=== PATIENT | male | born 1995 | race African-American/Black ===

== ENCOUNTER 2016-06-15 23:26 | Emergency (ER) | payer OTHER ==
[~2016-06-15] VITALS: Ht 185.4 cm; Wt 105.0 kg
[~2016-06-15 23:26] MED LIST: ALBU6.7H INH; RANI150C PO
[2016-06-15 23:27] VITALS: BP 119/71; PULSE 84; RESP 16; TEMP 98; O2SAT 99
[2016-06-16] MEDS ORDERED: GLYB2.5T3 PO (00:10)
[2016-06-16 04:06] LABS: AUTOMATED NEUTROPHIL # 2.2 TH/MM3 (1.8-7.7); BASOPHIL % 0.4 % (0.0-2.0); EOSINOPHIL # 0.2 TH/MM3 (0-0.4); EOSINOPHIL % 3.4 % (0.0-4.0); HEMATOCRIT 42.7 % (39.0-51.0); HEMO FLAGS DIFF FINAL; LYMPH % 44.8 % (9.0-44.0); LYMPHOCYTE # 2.5 TH/MM3 (1.0-4.8); MEAN CELL VOLUME 85.3 FL (80.0-100.0); MEAN CORPUSCULAR HEMOGLOBIN 28.8 PG (27.0-34.0); MEAN CORPUSCULAR HGB CONC 33.8 % (32.0-36.0); MONO % 11.6 % (0.0-8.0); NEUT % 39.8 % (16.0-70.0); PLATELET COUNT 218 TH/MM3 (150-450); RED CELL DISTRIBUTION WIDTH 13.5 % (11.6-17.2); WHITE BLOOD COUNT 5.6 TH/MM3 (4.0-11.0)
[2016-06-16 04:30] LABS: BLOOD, URINE NEG (NEG); GLUCOSE,URINE NEG (NEG); KETONE, URINE NEG (NEG); NITRITE,URINE NEG (NEG); URINE COLOR YELLOW (YELLW/STRAW)
[2016-06-16 04:34] LABS: COMMENT (UR) CULT NOT INDICATED; CULTURE IF INDICATED CULT NOT INDICATED
[2016-06-16 04:36] LABS: ALT (GPT) 22 U/L (9-52); ANION GAP 7 MEQ/L (5-15); AST (GOT) 21 U/L (15-39); BICARBONATE 26.5 MEQ/L (21.0-32.0); BLOOD UREA NITROGEN 11 MG/DL (7-18); CHLORIDE 106 MEQ/L (98-107); GLOMERULAR FILTRATION RATE 107 ML/MIN (>89); POTASSIUM 3.9 MEQ/L (3.5-5.1); SODIUM (NA) 139 MEQ/L (136-145)
[2016-06-16 04:38] LABS: ALKALINE PHOSPHATASE 48 U/L (45-117); TOTAL BILIRUBIN ADULT 1.3 MG/DL (0.2-1.0)
== END 2016-06-16 06:30 | disposition left against medical advice (07) ==
LOC: NED 23:26
DX: R11.10 Vomiting, unspecified (principal)
CPT/HCPCS: 80053; 81001; 83690; 85025; 99281

== ENCOUNTER 2016-10-13 00:22 | Emergency (ER) | payer SELFPAY ==
[~2016-10-13] VITALS: Ht 185.4 cm; Wt 105.0 kg
[~2016-10-13 00:22] MED LIST changes: -ALBU6.7H INH; +GLYB2.5T3 PO; -RANI150C PO
[2016-10-13 00:24] VITALS: BP 143/74; PULSE 82; RESP 16; TEMP 98.2; O2SAT 97
== END 2016-10-13 00:55 | disposition left against medical advice (07) ==
LOC: NED 00:22
DX: M54.9 Dorsalgia, unspecified (principal)
CPT/HCPCS: 99281

== ENCOUNTER 2016-10-30 23:47 | Emergency (ER) | payer MEDICAID, OTHER ==
[~2016-10-30] VITALS: Ht 185.4 cm; Wt 115.0 kg
[2016-10-30 23:52] VITALS: BP 165/82; PULSE 100; RESP 20; TEMP 98.4; O2SAT 94
[2016-10-31] MEDS ORDERED: methylPREDNISolone SOD SUCC 125 MG/2 ML VIAL IVP ONE (00:15)
[2016-10-31] MEDS ORDERED: SODIUM CHLOR 0.9% 1000 ML INJ 1,000 ML IV ONE (00:15)
[2016-10-31] MEDS ORDERED: SODIUM CHLORIDE 0.9% FLUSH 10 ML FLUSH IVF PRN (00:15)
[2016-10-31] MEDS: RESP: ALBUTEROL 2.5 MG/IPRATROPIUM 0.5 MG NEB (SCH) INH (00:29)
--- NOTE | 2016-10-31 00:32 | RADRPT ---
EXAM DATE/TIME: 10/31/2016 00:13 [facility] COMPARISON: No previous studies available for comparison. INDICATIONS : Pt has had cough x 6 hours. MEDICAL HISTORY : None. SURGICAL HISTORY : None. ENCOUNTER: Initial ACUITY: 1 day PAIN SCORE: 6/10 LOCATION: Bilateral chest FINDINGS: A single view of the chest demonstrates the lungs to be symmetrically aerated without evidence of mas s, infiltrate or effusion. The cardiomediastinal contours are unremarkable. Osseous structures are intact. CONCLUSION: Normal examination. Juan David MD on October 31, 2016 at 0:30 Board Certified Radiologist. This report was verified electronically.
[2016-10-31 00:43] VITALS: RESP 20; O2SAT 95
[2016-10-31 02:02] VITALS: BP 116/57; PULSE 102; RESP 18; O2SAT 96
[2016-10-31] MEDS ORDERED: PRED50 PO (03:11)
[2016-10-31] MEDS ORDERED: ALBU0.08 NEB (03:11)
[2016-10-31] MEDS ORDERED: NEBULIZER/ADULT1 KIT (03:11)
[2016-10-31] MEDS ORDERED: ALBUAER3 INH (03:11)
--- NOTE | 2016-10-31 03:12 | PD ---
HPI Chief Complaint: Respiratory Distress Time Seen by Provider: 00:02 Travel History International Travel<30 days: No Contact w/Intl Traveler<30days: No Traveled to known affect area: No History of Present Illness HPI 20-year-old male with history of asthma presents to the emergency department via EMS for 2-3 days of progressive worsening shortness of breath. Patient is out of his rescue inhaler. Patient has not recently been on steroids. Patient denies fever or chills. Patient's had nonproductive cough. Patient denies chest pain. PFSH Past Medical History Narrative Medical Asthma diabetes tonsillectomy; alcohol use: Nursing notes reviewed Asthma: Yes Diabetes: Yes Diminished Hearing: No Respiratory: Yes (ASTHMA) Tetanus Vaccination: < 5 Years Influenza Vaccination: Yes Past Surgical History Tonsillectomy: Yes (T AND A) Other Surgery: Yes (adenoids removed ) Social History Alcohol Use: Yes (rarely ) Tobacco Use: No Substance Use: No Allergies-Medications (Allergen,Severity, Reaction): Coded Allergies: Shellfish (Verified Allergy, Severe, Hives, 10/30/16) Reported Meds & Prescriptions Reported Meds & Active Scripts Active Nebulizer/Adult Mask (N/A) 1 Kit Kit 1 Kit .ROUTE DIRECTED Proair Hfa 8.5 GM Inh (Albuterol Sulfate) 90 Mcg/Act Aer 2 Puff INH Q4-6H PRN 108 mcg/actuation Albuterol Neb (Albuterol Sulfate) 2.5 Mg/3 Ml Neb 2.5 Mg NEB Q4HR NEB PRN Prednisone 50 Mg Tab 50 Mg PO DAILY Review of Systems Except as stated in HPI: all other systems reviewed are Neg General / Constitutional: No: Fever, Chills HENT: No: Congestion Cardiovascular: No: Chest Pain or Discomfort Respiratory: Positive: Cough, Shortness of Breath, Wheezing Gastrointestinal: No: Nausea, Vomiting, Abdominal Pain Genitourinary: No: Urgency, Frequency, Decreased Urinary Output Musculoskeletal: No: Myalgias, Arthralgias Skin: No Rash Neurologic: No: Weakness Psychiatric: No: Anxiety Endocrine: No: Polyuria, Polydipsia Hematologic/Lymphatic: No: Lymph Node Enlargement Physical Exam Narrative GENERAL: Well-developed well-nourished male in mild respiratory distress; no stridor or hoarseness SKIN: Warm and dry. HEAD: Normocephalic. EYES: No scleral icterus. No injection or drainage. NECK: Supple, trachea midline. No JVD or lymphadenopathy. CARDIOVASCULAR: Increased Regular rate and rhythm without murmurs, gallops, or rubs. RESPIRATORY: Breath sounds equal bilaterally diffuse wheezing bilaterally. No accessory muscle use. GASTROINTESTINAL: Abdomen soft, non-tender, nondistended. MUSCULOSKELETAL: No cyanosis, or edema. BACK: Nontender without obvious deformity. No CVA tenderness. Data Data Last Documented VS Vital Signs Date Time Temp Pulse Resp B/P Pulse Ox O2 Delivery O2 Flow Rate FiO2 10/31/16 03:31 98.6 92 16 142/68 96 10/31/16 02:02 Room Air Orders Iv Access Insert/Monitor (10/31/16 00:02) Ecg Monitoring (10/31/16 00:02) Oximetry (10/31/16 00:02) Chest, Single Ap (10/31/16 00:02) Sodium Chloride 0.9% Flush (Ns Flush) (10/31/16 00:15) Methylprednisolone So Succ Inj (Solumedr (10/31/16 00:15) Albuterol-Ipratropium Neb (Duoneb Neb) (10/31/16 00:15) Sodium Chlor 0.9% 1000 Ml Inj (Ns 1000 M (10/31/16 00:15) MDM Medical Decision Making Medical Screen Exam Complete: Yes Emergency Medical Condition: Yes Medical Record Reviewed: Yes Differential Diagnosis Exacerbation asthma, bronchitis, pneumonia Narrative Course Bilateral audible expiratory wheeze with some work of breathing; placed on monitor patient administered steroid and DuoNeb updrafts. Patient resting and reassessed decreased wheezing lung sounds are clear Patient remains clinically improved and stable for outpatient management. Patient reports that he is out of his rescue inhaler and needs medication refill. Diagnosis Primary Impression: Asthma Qualified Code: J45.21 - Mild intermittent asthma with acute exacerbation Referrals: [facility] 2 days Patient Instructions: General Instructions Additional Instructions: Take medication as prescribed Follow-up with primary care provider/[facility] Return to the emergency for any concerns or change in condition Take acetaminophen/Tylenol as needed for fever 100.4F or greater Increase fluid hydration Med/Other Pt SpecificInfo: Prescription(s) given Scripts Nebulizer/Adult Mask 1 Kit Kit #1 KIT .ROUTE DIRECTED Ref 0 Prov:Florinda Castro MD 10/31/16 Albuterol 8.5 GM Inh (Proair Hfa 8.5 GM Inh)90 Mcg/Act Aer2 Puff INH Q4-6H PRN ( SHORTNESS OF BREATH) #1 INHALER Ref 0 108 mcg/actuation Prov:Florinda Castro MD 10/31/16 Albuterol Neb 2.5 Mg/3 Ml Neb2.5 Mg NEB Q4HR NEB PRN (SHORTNESS OF BREATH) #60 NEBULE Ref 0 Prov:Florinda Castro MD 10/31/16 Prednisone 50 Mg Tab50 Mg PO DAILY #4 TAB Ref 0 Prov:Florinda Castro MD 10/31/16 Disposition: 01 DISCHARGE HOME Condition: Stable Florinda Castro MD Oct 31, 2016 03:12
[2016-10-31 03:31] VITALS: BP 142/68; TEMP 98.6
== END 2016-10-31 03:40 | disposition home or self-care (01) ==
LOC: NEPC 23:47
DX: J45.21 Mild intermittent asthma with (acute) exacerbation (principal); E11.9 Type 2 diabetes mellitus without complications; Z87.09 Personal history of other diseases of the respiratory system
CPT/HCPCS: 71010; 94640; 94664; 96361; 96374; 99284; J2930; J7030

== ENCOUNTER 2016-11-10 22:16 | Emergency (ER) | payer MEDICAID ==
[~2016-11-10] VITALS: Ht 185.4 cm; Wt 114.0 kg
[~2016-11-10 22:16] MED LIST changes: +ALBU0.08 NEB; +ALBUAER3 INH; -GLYB2.5T3 PO; +NEBULIZER/ADULT1 KIT; +PRED50 PO
[2016-11-10 22:19] VITALS: BP 146/72; PULSE 90; RESP 20; TEMP 99.1; O2SAT 93
[2016-11-10 22:33] VITALS: PULSE 102; RESP 24; O2SAT 88
--- NOTE | 2016-11-10 22:35 | PD ---
Physical Exam Date Seen by Provider: Nov 10, 2016 Time Seen by Provider: 22:33 Narrative 20 yo male here for evaluation of SOB. Has had this for about two weeks. Per patient he was seen here and taking meds with no improvement. History of asthma. Finished steroids. No fevers. No sick contacts. Vitals are stable. Awaiting bed placement. Data Data Last Documented VS Vital Signs Date Time Temp Pulse Resp B/P Pulse Ox O2 Delivery O2 Flow Rate FiO2 11/10/16 22:19 99.1 90 20 146/72 93 Room Air [facility] Medical Record Reviewed: Yes Supervised Visit with POONAM: No Mandeep Amato Nov 10, 2016 22:35
[2016-11-10] MEDS ORDERED: SODIUM CHLORIDE 0.9% FLUSH 10 ML FLUSH IVF PRN (22:45)
[2016-11-10] MEDS ORDERED: methylPREDNISolone SOD SUCC 125 MG/2 ML VIAL IVP ONE (22:45)
[2016-11-10] MEDS ORDERED: RESP: BUDESONIDE 0.5 MG/2 ML NEB NEB ONE (22:45)
[2016-11-10] MEDS: RESP: ALBUTEROL 2.5 MG/IPRATROPIUM 0.5 MG NEB (SCH) INH ×3 (22:55→23:00)
[2016-11-10 22:57] VITALS: RESP 18; O2SAT 96
--- NOTE | 2016-11-10 23:00 | RADRPT ---
EXAM DATE/TIME: 11/10/2016 22:40 [facility] COMPARISON: CHEST SINGLE AP, October 31, 2016, 0:13. INDICATIONS : Short of breath. MEDICAL HISTORY : None. SURGICAL HISTORY : None. ENCOUNTER: Initial ACUITY: 1 day PAIN SCORE: 0/10 LOCATION: Bilateral chest FINDINGS: Minimal parenchymal changes are present in the left base. The right lung is clear. The heart and pul monary vascularity are normal. The portion of the bony skeleton visualized is unremarkable. CONCLUSION: Normal parenchymal changes left base, nonspecific Jovanny De La Cruz MD FACR on November 10, 2016 at 22:58 Board Certified Radiologist. This report was verified electronically.
[2016-11-10 23:13] LABS: BLOOD GAS BASE EXCESS 2.7 mmol/L (-2-2); BLOOD GAS CARBOXYHEMOGLOBIN 0.8 % (0-4); BLOOD GAS HCO3 27 mmol/L (22-26); BLOOD GAS METHEMOGLOBIN 0.6 % (0-2); BLOOD GAS O2 HGB SATURATION 93 % (90-100); BLOOD GAS OXYGEN CONTENT 19.6 Vol % (12.0-20.0); BLOOD GAS PCO2 42 mmHg (38-42); BLOOD GAS PO2 71 mmHG (61-120); BLOOD GAS TOTAL HGB 14.9 G/DL (12.0-16.0); CRITICAL VALUE NO; LITER FLOW 2 L/M; OXYGEN DEVICE NASAL CANNULA; TEMP CORR TO 98.6
[2016-11-10 23:14] LABS: DRAW SITE RT RADIAL; NUMBER OF ARTERIAL PUNCTURES 1; STAT YES; ULNAR PULSE PRESENT
[2016-11-10 23:27] LABS: AUTOMATED NEUTROPHIL # 5.4 TH/MM3 (1.8-7.7); BASOPHIL # 0.1 TH/MM3 (0-0.2); BASOPHIL % 0.5 % (0.0-2.0); EOSINOPHIL # 0.4 TH/MM3 (0-0.4); EOSINOPHIL % 3.9 % (0.0-4.0); HEMO FLAGS DIFF FINAL; LYMPH % 36.2 % (9.0-44.0); LYMPHOCYTE # 3.7 TH/MM3 (1.0-4.8); MEAN CELL VOLUME 84.2 FL (80.0-100.0); MEAN CORPUSCULAR HEMOGLOBIN 28.5 PG (27.0-34.0); MEAN CORPUSCULAR HGB CONC 33.8 % (32.0-36.0); MONO % 6.5 % (0.0-8.0); NEUT % 52.9 % (16.0-70.0); PLATELET COUNT 261 TH/MM3 (150-450); RED BLOOD COUNT 5.23 MIL/MM3 (4.50-5.90); RED CELL DISTRIBUTION WIDTH 13.4 % (11.6-17.2); WHITE BLOOD COUNT 10.2 TH/MM3 (4.0-11.0)
[2016-11-10 23:59] LABS: ANION GAP 6 MEQ/L (5-15); AST (GOT) 26 U/L (15-39); BICARBONATE 26.6 MEQ/L (21.0-32.0); BLOOD UREA NITROGEN 17 MG/DL (7-18); CHLORIDE 106 MEQ/L (98-107); GLOMERULAR FILTRATION RATE 95 ML/MIN (>89); POTASSIUM 3.6 MEQ/L (3.5-5.1); SODIUM (NA) 139 MEQ/L (136-145)
[2016-11-11] LABS: ALT (GPT) 27 U/L (9-52)
[2016-11-11 00:04] LABS: ALKALINE PHOSPHATASE 49 U/L (45-117); CREATINE KINASE 419 U/L (39-308); TOTAL BILIRUBIN ADULT 0.7 MG/DL (0.2-1.0)
[2016-11-11 00:16] LABS: CKMB 3.9 NG/ML (0.5-3.6)
[2016-11-11] MEDS ORDERED: PRED20 PO (00:49)
[2016-11-11] MEDS ORDERED: ALBUAER3 INH (00:49)
[2016-11-11] MEDS ORDERED: AZIT250T3 PO (00:49)
[2016-11-11] MEDS ORDERED: BECL80AE3 INH (00:49)
--- NOTE | 2016-11-11 00:50 | PD ---
HPI Chief Complaint: Respiratory Symptoms Time Seen by Provider: 00:25 Travel History International Travel<30 days: No Contact w/Intl Traveler<30days: No Traveled to known affect area: No History of Present Illness HPI This is a 20-year-old male with a history of asthma who presents to the emergency department with 2 weeks of increasing shortness of breath associated with a productive cough with some blood and yellow sputum, intermittent, moderate severity. Patient reports he ran out of his inhaler but he didn't think it was working anyway. He says he has asthma attacks every 2 weeks or so. He denies any fevers or chills. He denies any recent long trips or leg swelling. PFSH Past Medical History Asthma: Yes Diabetes: Yes Patient Takes Glucophage: No Diminished Hearing: No Respiratory: Yes (ASTHMA) Tetanus Vaccination: > 5 Years Influenza Vaccination: No Past Surgical History Tonsillectomy: Yes (T AND A) Other Surgery: Yes (adenoids removed ) Social History Alcohol Use: Yes (rarely ) Tobacco Use: No Substance Use: No Allergies-Medications (Allergen,Severity, Reaction): Coded Allergies: Shellfish (Verified Allergy, Severe, Hives, 10/30/16) Reported Meds & Prescriptions Reported Meds & Active Scripts Active Nebulizer/Adult Mask (N/A) 1 Kit Kit 1 Kit .ROUTE DIRECTED Proair Hfa 8.5 GM Inh (Albuterol Sulfate) 90 Mcg/Act Aer 2 Puff INH Q4-6H PRN 108 mcg/actuation Albuterol Neb (Albuterol Sulfate) 2.5 Mg/3 Ml Neb 2.5 Mg NEB Q4HR NEB PRN Prednisone 50 Mg Tab 50 Mg PO DAILY Review of Systems Except as stated in HPI: all other systems reviewed are Neg Physical Exam Narrative GENERAL:Well appearing, no acute distress SKIN: Focused skin assessment warm and dry. HEAD: Atraumatic. Normocephalic. EYES: Pupils equal and round. No injection or drainage. ENT: Moist mucous membranes NECK: Trachea midline. CARDIOVASCULAR: Regular rate and rhythm. No murmur appreciated. RESPIRATORY: Mild diffuse wheezing. No increased work of breathing. GASTROINTESTINAL: Abdomen soft, non-tender, nondistended. MUSCULOSKELETAL: No obvious deformities. NEUROLOGICAL: Awake and alert. No obvious cranial nerve deficits. Moving all extremities. PSYCHIATRIC: Appropriate mood and affect; insight and judgment normal. Data Data Last Documented VS Vital Signs Date Time Temp Pulse Resp B/P Pulse Ox O2 Delivery O2 Flow Rate FiO2 11/10/16 22:57 96 Nasal Cannula 2 11/10/16 22:57 18 11/10/16 22:33 102 11/10/16 22:19 99.1 146/72 Orders Complete Blood Count With Diff (11/10/16 22:45) Comprehensive Metabolic Panel (11/10/16 22:45) Arterial Blood Gas (Abg) (11/10/16 22:45) Iv Access Insert/Monitor (11/10/16 22:45) Electrocardiogram (11/10/16 22:45) Ecg Monitoring (11/10/16 22:45) Oximetry (11/10/16 22:45) Oxygen Administration (11/10/16 22:45) Chest, Single Ap (11/10/16 22:45) Sodium Chloride 0.9% Flush (Ns Flush) (11/10/16 22:45) Methylprednisolone So Succ Inj (Solumedr (11/10/16 22:45) Albuterol-Ipratropium Neb (Duoneb Neb) (11/10/16 22:45) Budesonide Neb (Pulmicort Respule Neb) (11/10/16 22:45) Westergren Sedimentation Rate (11/10/16 23:00) C-Reactive Protein (Crp) (11/10/16 22:55) Troponin I (11/10/16 22:55) Ckmb (Isoenzyme) Profile (11/10/16 22:55) CKMB (11/10/16 22:55) CKMB% (11/10/16 22:55) Labs Laboratory Tests Test 11/10/16 11/10/16 22:46 22:55 Blood Gas Puncture Site RT RADIAL Blood Gas Patient Temperature 98.6 Blood Gas HCO3 27 mmol/L Blood Gas Base Excess 2.7 mmol/L Blood Gas Oxygen Saturation 93 % Arterial Blood pH 7.42 Arterial Blood Partial 42 mmHg Pressure CO2 Arterial Blood Partial 71 mmHG Pressure O2 Arterial Blood Oxygen Content 19.6 Vol % Arterial Blood 0.8 % Carboxyhemoglobin Arterial Blood Methemoglobin 0.6 % Blood Gas Hemoglobin 14.9 G/DL Oxygen Delivery Device NASAL CANNULA Blood Gas Liter Flow 2 L/M Erythrocyte Sedimentation Rate 1 mm/hr White Blood Count 10.2 TH/MM3 Red Blood Count 5.23 MIL/MM3 Hemoglobin 14.9 GM/DL Hematocrit 44.0 % Mean Corpuscular Volume 84.2 FL Mean Corpuscular Hemoglobin 28.5 PG Mean Corpuscular Hemoglobin 33.8 % Concent Red Cell Distribution Width 13.4 % Platelet Count 261 TH/MM3 Mean Platelet Volume 8.4 FL Neutrophils (%) (Auto) 52.9 % Lymphocytes (%) (Auto) 36.2 % Monocytes (%) (Auto) 6.5 % Eosinophils (%) (Auto) 3.9 % Basophils (%) (Auto) 0.5 % Neutrophils # (Auto) 5.4 TH/MM3 Lymphocytes # (Auto) 3.7 TH/MM3 Monocytes # (Auto) 0.7 TH/MM3 Eosinophils # (Auto) 0.4 TH/MM3 Basophils # (Auto) 0.1 TH/MM3 CBC Comment DIFF FINAL Differential Comment Sodium Level 139 MEQ/L Potassium Level 3.6 MEQ/L Chloride Level 106 MEQ/L Carbon Dioxide Level 26.6 MEQ/L Anion Gap 6 MEQ/L Blood Urea Nitrogen 17 MG/DL Creatinine 1.19 MG/DL Estimat Glomerular Filtration 95 ML/MIN Rate Random Glucose 105 MG/DL Calcium Level 8.6 MG/DL Total Bilirubin 0.7 MG/DL Aspartate Amino Transf 26 U/L (AST/SGOT) Alanine Aminotransferase 27 U/L (ALT/SGPT) Alkaline Phosphatase 49 U/L Total Creatine Kinase 419 U/L Creatine Kinase MB 3.9 NG/ML Creatine Kinase MB % 0.9 % Troponin I LESS THAN 0.02 NG/ML C-Reactive Protein 0.92 MG/DL Total Protein 6.6 GM/DL Albumin 3.4 GM/DL [facility] Medical Decision Making Medical Screen Exam Complete: Yes Emergency Medical Condition: Yes Interpretation(s) Hypoxic on arrival, afebrile No leukocytosis Electrolytes are reassuring ABG is reassuring Differential Diagnosis Asthma exacerbation, pneumonia, pulmonary embolism, congestive heart failure Narrative Course This is a 20-year-old male who presents to the emergency department with shortness of breath. He has a history of asthma. He was given a bronchodilator treatment and IV steroids. On reassessment he has a normal oxygen saturation 97 100% and is moving air and speaking full sentences. He feels much better. I think he can be discharged on prednisone. I think it also benefit from an inhaled steroid and azithromycin due to his increased sputum production. He was given a referral for his iliac clinic as he has no primary care follow-up. Diagnosis Primary Impression: Asthma Qualified Code: J45.41 - Moderate persistent asthma with acute exacerbation Patient Instructions: General Instructions Additional Instructions: If you develop severe shortness of breath, chest pain, or difficulty breathing return to the emergency department. Use albuterol every 4 hours for the next 2 days. Then use as needed for wheezing. Complete your course of steroids. Complete your course of antibiotics. Follow up with your primary care physician in 2-3 days if your symptoms have not improved. Med/Other Pt SpecificInfo: Prescription(s) given Scripts Beclomethasone Inh (Qvar Inh)80 Mcg/Act Aero1 Puff INH BID #1 INHALER Ref 0 Prov:Teena Gaffney MD 11/11/16 Prednisone 20 Mg Tab40 Mg PO DAILY 4 Days Prov:Teena Gaffney MD 11/11/16 Albuterol 8.5 GM Inh (Proair Hfa 8.5 GM Inh)90 Mcg/Act Aer2 Puff INH Q4-6H PRN ( SHORTNESS OF BREATH) #1 INHALER Ref 0 108 mcg/actuation Prov:Teena Gaffney MD 11/11/16 Azithromycin 250 Mg [id number] Mg PO DIRECTED #6 TAB Take 2 tabs (500 mg) on day 1 then 1 tab daily x 4 days. Prov:Teena Gaffney MD 11/11/16 Disposition: 01 DISCHARGE HOME Condition: Stable Teena Gaffney MD Nov 11, 2016 00:49
--- NOTE | 2016-11-11 08:35 | EKG ---
Date Performed: 11/10/2016 Time Performed: 22:52:25 PTAGE: 20 years EKG: Sinus rhythm WITH MARKED SINUS ARRHYTHMIA ST ELEVATION CONSISTENT WITH INJURY, PERICARDITIS, OR EARLY REPOLARIZAT ION NONSPECIFIC ST & T-WAVE ABNORMALITY ABNORMAL ECG NO PREVIOUS TRACING DOCTOR: Musa Rangel Interpretating Date/Time 11/11/2016 08:34:42
== END 2016-11-11 01:05 | disposition home or self-care (01) ==
LOC: NEPE 22:16
DX: J45.909 Unspecified asthma, uncomplicated (principal); R94.31 Abnormal electrocardiogram [ECG] [EKG]; I49.8 Other specified cardiac arrhythmias; E11.9 Type 2 diabetes mellitus without complications; Z79.51 Long term (current) use of inhaled steroids; Z79.899 Other long term (current) drug therapy
CPT/HCPCS: 36600; 71010; 80053; 82550; 82552; 82805; 84484; 85025; 85652; 86140; 93005; 94640; 94664; 96374; 99285; J2930; J7626

== ENCOUNTER 2016-11-29 22:34 | Emergency (ER) | payer MEDICAID ==
[~2016-11-29 22:34] MED LIST changes: +AZIT250T3 PO; +BECL80AE3 INH; +PRED20 PO
[2016-11-29 22:37] VITALS: BP 145/69; PULSE 80; RESP 16; TEMP 98.6; O2SAT 97
--- NOTE | 2016-11-30 01:37 | PD ---
HPI Chief Complaint: Respiratory Distress Time Seen by Provider: 01:28 Travel History International Travel<30 days: No Contact w/Intl Traveler<30days: No Traveled to known affect area: No History of Present Illness HPI The patient is a 21 year old male who presents to the [facility] emergency department with a history of increased shortness of breath and wheezing that began a week ago. He reports that he's been having uses pro-air rescue inhaler 3-4 times per day. He reports that he is using his Qvar inhaler, 1 inhalation twice daily. The patient reports that over the last week he has had an intermittently productive cough. He reports that the cough is intermittently productive of a light green sputum. He denies having any nasal discharge or fevers. He denies having a primary care physician. On review of systems otherwise, the patient denies any neck pain, chest pain, abdominal pain, vomiting, diarrhea, urinary symptoms, or neurologic symptoms. PFSH Past Medical History Narrative Medical The patient's past medical history is significant for asthma, DM-controlled with diet. Asthma: Yes Diabetes: Yes Patient Takes Glucophage: No Diminished Hearing: No Respiratory: Yes (ASTHMA) Past Surgical History Narrative Surgical The patient's past surgical history is significant for tonsil and adenoidectomy. Tonsillectomy: Yes (T AND A) Other Surgery: Yes (adenoids removed ) Social History Alcohol Use: Yes (rarely ) Tobacco Use: No (quit 2 weeks ago) Substance Use: No Allergies-Medications (Allergen,Severity, Reaction): Coded Allergies: Shellfish (Verified Allergy, Severe, Hives, 11/30/16) Reported Meds & Prescriptions Reported Meds & Active Scripts Active Qvar Inh (Beclomethasone Dipropionate) 80 Mcg/Act Aero 2 Puff INH BID Nebulizer/Adult Mask (N/A) 1 Kit Kit 1 Kit .ROUTE DIRECTED Proair Hfa 8.5 GM Inh (Albuterol Sulfate) 90 Mcg/Act Aer 2 Puff INH Q4-6H PRN 108 mcg/actuation Albuterol Neb (Albuterol Sulfate) 2.5 Mg/3 Ml Neb 2.5 Mg NEB Q4HR NEB PRN Review of Systems Except as stated in HPI: all other systems reviewed are Neg General / Constitutional: No: Fever Eyes: No: Visual changes HENT: No: Headaches Cardiovascular: No: Chest Pain or Discomfort Respiratory: Positive: Cough, Shortness of Breath, Wheezing Gastrointestinal: No: Abdominal Pain Genitourinary: No: Dysuria Musculoskeletal: No: Pain Skin: No Rash Neurologic: No: Weakness Psychiatric: No: Depression Endocrine: No: Polydipsia Hematologic/Lymphatic: No: Easy Bruising Physical Exam Narrative General: The patient is a well-developed well-nourished male in no acute distress. Head and Neck exam: Head is normocephalic atraumatic. Eyes: EOMI, pupils are equal round and reactive to light. Nose: Midline septum with pink mucous membranes Mouth: Dentition unremarkable. Moist mucus membranes. Posterior oropharynx is not erythematous. No tonsillar hypertrophy. Uvula midline. Airway patent. Neck: No palpable lymphadenopathy. No nuchal rigidity. No thyromegaly. Cardiovascular: Regular rate and rhythm without murmurs, gallops, or rubs. Lungs: Clear to auscultation bilaterally. No wheezes, rhonchi, or rales. No accessory muscle use. No paroxysmal abdominal breathing. No conversational dyspnea. No tripoding. Abdomen: Soft, without tenderness to palpation in all 4 quadrants of the abdomen. No guarding, rebound, or rigidity. Extremities: No clubbing, cyanosis, or edema. No calf tenderness on palpation. Back: No costovertebral angle tenderness to palpation. Neurologic Exam: Grossly nonfocal. Skin Exam: No rash noted. Intact skin that is warm and dry. Data Data Last Documented VS Vital Signs Date Time Temp Pulse Resp B/P Pulse Ox O2 Delivery O2 Flow Rate FiO2 11/30/16 01:02 74 17 96 Room Air 11/29/16 22:37 98.6 145/69 [facility] Medical Decision Making Medical Screen Exam Complete: Yes Emergency Medical Condition: Yes Medical Record Reviewed: No Differential Diagnosis Asthma exacerbation, versus pneumonia, versus bronchitis, versus sinusitis Narrative Course During the course of the patients emergency department visit, the patients history, examination, and differential diagnosis were reviewed with the patient. The patient had no wheezing noted initially on examination. The patient reports that he did use his pro-air inhaler prior to arrival. The patient reports that he has been using his inhaler more frequently. The patient will have his asthma regimen modified to increase his Qvar to 2 puffs twice daily. The patient was given a refill of his pro-air inhaler. The patient additionally had Singulair added to his asthma regimen. He struck the regarding the importance of following up with a primary care physician. He is given the name of the outpatient referral doctor, Dr. Herrera for follow-up. The patient is resting comfortably and feels better, is alert and in no distress. The patients results and examination findings were discussed with the patient. The repeat examination is unremarkable and benign. The history, exam, diagnostic testing, and current condition do not suggest any significant pathology to warrant further testing, continued ED treatment, admission, or surgical evaluation at this point. The vital signs have been stable. The patient does not have uncontrollable pain, intractable vomiting, or other significant symptoms. The patient's condition is stable and appropriate for discharge. The patient will pursue further outpatient evaluation with a primary care physician or other designated or consulting physician as indicated in the discharge instructions. The patient expressed understanding and was agreeable with this plan. Diagnosis Primary Impression: Asthma Qualified Code: J45.40 - Moderate persistent asthma without complication Referrals: Karissa Herrera MD 1 week Patient Instructions: Asthma (ED), General Instructions Med/Other Pt SpecificInfo: Prescription(s) given Scripts Montelukast 10 Mg Tab10 Mg PO HS #30 TAB Ref 0 Prov:Shayy Sorto MD 11/30/16 Albuterol 8.5 GM Inh (Proair Hfa 8.5 GM Inh)90 Mcg/Act Aer2 Puff INH Q4-6H PRN ( SHORTNESS OF BREATH) #1 INHALER Ref 0 108 mcg/actuation Prov:Shayy Sorto MD 11/30/16 Beclomethasone Inh (Qvar Inh)80 Mcg/Act Aero2 Puff INH BID #1 INHALER Ref 0 Prov:Shayy Sorto MD 11/30/16 Disposition: 01 DISCHARGE HOME Condition: Stable Shayy Sorto MD Nov 30, 2016 01:37
[2016-11-30] MEDS ORDERED: ALBUAER3 INH (01:52)
[2016-11-30] MEDS ORDERED: MONT10TA4 PO (01:52)
[2016-11-30] MEDS ORDERED: BECL80AE3 INH (01:52)
== END 2016-11-30 02:53 | disposition home or self-care (01) ==
LOC: NEPC 22:34
DX: J45.40 Moderate persistent asthma, uncomplicated (principal); Z87.891 Personal history of nicotine dependence
CPT/HCPCS: 99284

== ENCOUNTER 2016-12-30 03:47 | Emergency (ER) | payer MEDICAID ==
[~2016-12-30] VITALS: Ht 185.4 cm; Wt 109.5 kg
[~2016-12-30 03:47] MED LIST changes: -AZIT250T3 PO; +MONT10TA4 PO; -PRED20 PO; -PRED50 PO
[2016-12-30 03:49] VITALS: BP 136/72; PULSE 77; RESP 15; TEMP 98.6; O2SAT 98
[2016-12-30 04:09] VITALS: BP 127/68; PULSE 72; RESP 17; TEMP 98.4; O2SAT 98
--- NOTE | 2016-12-30 04:13 | PD ---
HPI Chief Complaint: Abdominal Pain Time Seen by Provider: 04:05 Travel History International Travel<30 days: No Contact w/Intl Traveler<30days: No Traveled to known affect area: No History of Present Illness HPI This patient complains of abdominal cramping. It's bilateral lower quadrant. Duration one day. Severity is mild to moderate. He seems to be sleeping when I come in the room to evaluate him. It have nausea and vomiting earlier today. No diarrhea or fever. No abdominal surgeries. Symptoms have no alleviating factors. He is diabetic but never checks his sugar. Does not use insulin. PFSH Past Medical History Asthma: Yes Diabetes: Yes Patient Takes Glucophage: Yes Diminished Hearing: No Respiratory: Yes (Asthma) Immunizations Current: No Tetanus Vaccination: < 5 Years Influenza Vaccination: Yes Past Surgical History Tonsillectomy: Yes (T AND A) Other Surgery: Yes (adenoids removed ) Social History Alcohol Use: Yes (rarely ) Tobacco Use: No (quit 2 weeks ago) Substance Use: No Allergies-Medications (Allergen,Severity, Reaction): Coded Allergies: shellfish derived (Unverified Allergy, Severe, Hives, 12/14/16) Reported Meds & Prescriptions Reported Meds & Active Scripts Active Montelukast (Montelukast Sodium) 10 Mg Tab 10 Mg PO HS Proair Hfa 8.5 GM Inh (Albuterol Sulfate) 90 Mcg/Act Aer 2 Puff INH Q4-6H PRN 108 mcg/actuation Qvar Inh (Beclomethasone Dipropionate) 80 Mcg/Act Aero 2 Puff INH BID Nebulizer/Adult Mask (N/A) 1 Kit Kit 1 Kit .ROUTE DIRECTED Proair Hfa 8.5 GM Inh (Albuterol Sulfate) 90 Mcg/Act Aer 2 Puff INH Q4-6H PRN 108 mcg/actuation Albuterol Neb (Albuterol Sulfate) 2.5 Mg/3 Ml Neb 2.5 Mg NEB Q4HR NEB PRN Review of Systems General / Constitutional: No: Fever Eyes: No: Visual changes HENT: No: Headaches Cardiovascular: No: Chest Pain or Discomfort Respiratory: No: Shortness of Breath Gastrointestinal: Positive: Nausea, Vomiting, Abdominal Pain Genitourinary: No: Dysuria Musculoskeletal: No: Pain Skin: No Rash Neurologic: No: Weakness Psychiatric: No: Depression Endocrine: No: Polydipsia Hematologic/Lymphatic: No: Easy Bruising Physical Exam Narrative GENERAL: Well-nourished, well-developed patient in no apparent distress. SKIN: Focused skin assessment reveals no rash and nodules. Skin is Warm and dry. HEAD: Atraumatic. Normocephalic. EYES: Pupils equal and round. No scleral icterus. No injection or drainage. ENT: No nasal bleeding or discharge. Mucous membranes pink and moist. NECK: Trachea midline. No JVD. CARDIOVASCULAR: Regular rate and rhythm. No murmur appreciated. RESPIRATORY: No accessory muscle use. Clear to auscultation. Breath sounds equal bilaterally. GASTROINTESTINAL: Abdomen soft, non-tender, nondistended. Hepatic and splenic margins not palpable. MUSCULOSKELETAL: No obvious deformities. No clubbing. No cyanosis. No edema. NEUROLOGICAL: Awake and alert. No obvious cranial nerve deficits. Motor grossly within normal limits. Normal speech. PSYCHIATRIC: Appropriate mood and affect; insight and judgment normal. Data Data Last Documented VS Vital Signs Date Time Temp Pulse Resp B/P (MAP) Pulse Ox O2 Delivery O2 Flow Rate FiO2 12/30/16 04:09 98.4 72 17 127/68 (87) 98 Room Air Orders Orders Complete Blood Count With Diff (12/30/16 04:11) Comprehensive Metabolic Panel (12/30/16 04:11) Lipase (12/30/16 04:11) Iv Access Insert/Monitor (12/30/16 04:11) Ondansetron Inj (Zofran Inj) (12/30/16 04:15) Sodium Chloride 0.9% Flush (Ns Flush) (12/30/16 04:15) Sodium Chlor 0.9% 1000 Ml Inj (Ns 1000 M (12/30/16 04:15) Labs Laboratory Tests Test 12/30/16 04:20 White Blood Count 7.4 TH/MM3 Red Blood Count 5.05 MIL/MM3 Hemoglobin 14.5 GM/DL Hematocrit 43.1 % Mean Corpuscular Volume 85.3 FL Mean Corpuscular Hemoglobin 28.7 PG Mean Corpuscular Hemoglobin Concent 33.6 % Red Cell Distribution Width 13.0 % Platelet Count 230 TH/MM3 Mean Platelet Volume 8.4 FL Neutrophils (%) (Auto) 33.8 % Lymphocytes (%) (Auto) 49.8 % Monocytes (%) (Auto) 9.3 % Eosinophils (%) (Auto) 6.5 % Basophils (%) (Auto) 0.6 % Neutrophils # (Auto) 2.5 TH/MM3 Lymphocytes # (Auto) 3.7 TH/MM3 Monocytes # (Auto) 0.7 TH/MM3 Eosinophils # (Auto) 0.5 TH/MM3 Basophils # (Auto) 0.0 TH/MM3 CBC Comment DIFF FINAL Differential Comment Blood Urea Nitrogen 12 MG/DL Creatinine 1.08 MG/DL Random Glucose 111 MG/DL Total Protein 6.9 GM/DL Albumin 3.8 GM/DL Calcium Level 8.4 MG/DL Alkaline Phosphatase 51 U/L Aspartate Amino Transf (AST/SGOT) 29 U/L Alanine Aminotransferase (ALT/SGPT) 24 U/L Total Bilirubin 0.8 MG/DL Sodium Level 139 MEQ/L Potassium Level 3.4 MEQ/L Chloride Level 104 MEQ/L Carbon Dioxide Level 25.5 MEQ/L Anion Gap 10 MEQ/L Estimat Glomerular Filtration Rate 106 ML/MIN Lipase 90 U/L MDM Medical Decision Making Medical Screen Exam Complete: Yes Emergency Medical Condition: Yes Medical Record Reviewed: Yes Differential Diagnosis Colitis, gastroparesis, DKA Narrative Course I have reviewed the patient's electronic medical record. IV placed CBC is normal metabolic profile is normal LFT's are normal lipase is normal I gave him IV Zofran and 1 L normal saline IV bolus Accu-Chek is normal On recheck the patient is once again sound asleep. He has a soft nontender benign abdomen. I don't have any clinical suspicion of emergent intra- abdominal process. Diagnosis Primary Impression: Abdominal pain Qualified Codes: R10.30 - Lower abdominal pain, unspecified Additional Impression: Type 2 diabetes mellitus Qualified Codes: E11.9 - Type 2 diabetes mellitus without complications Additional Instructions: The patient was advised to follow up with their physician and return if they worsen. Med/Other Pt SpecificInfo: Other Disposition: 01 DISCHARGE HOME Condition: Stable Hi Melo MD Dec 30, 2016 04:13
[2016-12-30] MEDS ORDERED: ONDANSETRON HCL 4 MG/2 ML VIAL IVP ONE (04:15)
[2016-12-30] MEDS ORDERED: SODIUM CHLORIDE 0.9% FLUSH 10 ML FLUSH IV FLUSH PRN (04:15)
[2016-12-30] MEDS ORDERED: SODIUM CHLOR 0.9% 1000 ML INJ 1,000 ML IV ONE (04:15)
[2016-12-30 04:35] LABS: AUTOMATED NEUTROPHIL # 2.5 TH/MM3 (1.8-7.7); BASOPHIL % 0.6 % (0.0-2.0); EOSINOPHIL # 0.5 TH/MM3 (0-0.4); EOSINOPHIL % 6.5 % (0.0-4.0); HEMATOCRIT 43.1 % (39.0-51.0); HEMO FLAGS DIFF FINAL; LYMPH % 49.8 % (9.0-44.0); LYMPHOCYTE # 3.7 TH/MM3 (1.0-4.8); MEAN CELL VOLUME 85.3 FL (80.0-100.0); MEAN CORPUSCULAR HEMOGLOBIN 28.7 PG (27.0-34.0); MEAN CORPUSCULAR HGB CONC 33.6 % (32.0-36.0); MONO % 9.3 % (0.0-8.0); NEUT % 33.8 % (16.0-70.0); PLATELET COUNT 230 TH/MM3 (150-450); RED BLOOD COUNT 5.05 MIL/MM3 (4.50-5.90); WHITE BLOOD COUNT 7.4 TH/MM3 (4.0-11.0)
[2016-12-30 04:47] LABS: ANION GAP 10 MEQ/L (5-15); AST (GOT) 29 U/L (15-39); BICARBONATE 25.5 MEQ/L (21.0-32.0); BLOOD UREA NITROGEN 12 MG/DL (7-18); CHLORIDE 104 MEQ/L (98-107); GLOMERULAR FILTRATION RATE 106 ML/MIN (>89); POTASSIUM 3.4 MEQ/L (3.5-5.1); SODIUM (NA) 139 MEQ/L (136-145)
[2016-12-30 04:48] LABS: ALT (GPT) 24 U/L (9-52)
[2016-12-30 04:50] LABS: ALKALINE PHOSPHATASE 51 U/L (45-117); TOTAL BILIRUBIN ADULT 0.8 MG/DL (0.2-1.0)
== END 2016-12-30 06:05 | disposition home or self-care (01) ==
LOC: NEPC 03:47
DX: R10.30 Lower abdominal pain, unspecified (principal); E11.9 Type 2 diabetes mellitus without complications; J45.909 Unspecified asthma, uncomplicated; Z87.891 Personal history of nicotine dependence; Z79.51 Long term (current) use of inhaled steroids; Z79.899 Other long term (current) drug therapy
CPT/HCPCS: 80053; 83690; 85025; 96361; 96374; 99284; J2405; J7030

== ENCOUNTER → 2017-01-14 01:17 | Emergency (ER) | payer MEDICAID ==
[~2017-01-14 01:17] MED LIST changes: +RESP: ALBUTEROL 2.5 MG/IPRATROPIUM 0.5 MG NEB (SCH) NEB; +ZOFR4TAB3 SL
--- NOTE | 2017-01-15 00:12 | PD ---
HPI Chief Complaint: SOB, Cough Time Seen by Provider: 23:45 Travel History International Travel<30 days: No Contact w/Intl Traveler<30days: No History of Present Illness HPI Patient is a 21-year-old male with a history of asthma and does not need an inhaler and some time presents emergency department with cough and congestion for the past few days. Reports chills without objective fever. States that he has run out of his inhalers. States symptoms are mild gradually worsening. No exacerbating or alleviating factors could be elicited. PFSH Past Medical History Asthma: Yes Diabetes: Yes Diminished Hearing: No Respiratory: Yes (Asthma) Immunizations Current: No Past Surgical History Tonsillectomy: Yes (T AND A) Other Surgery: Yes (adenoids removed ) Social History Alcohol Use: Yes (rarely ) Tobacco Use: No (quit 2 weeks ago) Substance Use: No Allergies-Medications (Allergen,Severity, Reaction): Coded Allergies: shellfish derived (Unverified Allergy, Severe, Hives, 12/14/16) Reported Meds & Prescriptions Reported Meds & Active Scripts Active Montelukast (Montelukast Sodium) 10 Mg Tab 10 Mg PO HS Proair Hfa 8.5 GM Inh (Albuterol Sulfate) 90 Mcg/Act Aer 2 Puff INH Q4-6H PRN 108 mcg/actuation Qvar Inh (Beclomethasone Dipropionate) 80 Mcg/Act Aero 2 Puff INH BID Nebulizer/Adult Mask (N/A) 1 Kit Kit 1 Kit .ROUTE DIRECTED Proair Hfa 8.5 GM Inh (Albuterol Sulfate) 90 Mcg/Act Aer 2 Puff INH Q4-6H PRN 108 mcg/actuation Albuterol Neb (Albuterol Sulfate) 2.5 Mg/3 Ml Neb 2.5 Mg NEB Q4HR NEB PRN Review of Systems Except as stated in HPI: all other systems reviewed are Neg Physical Exam Narrative GENERAL: Well-nourished, well-developed patient. SKIN: Focused skin assessment warm/dry. HEAD: Normocephalic. EYES: No scleral icterus. No injection or drainage. ENT: TMs clear bilaterally, oropharynx mildly erythematous, tonsils normal, uvula midline. NECK: Supple, trachea midline. No JVD or lymphadenopathy. CARDIOVASCULAR: Regular rate and rhythm without murmurs, gallops, or rubs. RESPIRATORY: Breath sounds equal bilaterally. No accessory muscle use. No wheezes no rales or rhonchi. GASTROINTESTINAL: Abdomen soft, non-tender, nondistended. MUSCULOSKELETAL: No cyanosis, or edema. BACK: Nontender without obvious deformity. No CVA tenderness. Data Data Orders Orders Chest, Single Ap (01/14/17 ) Albuterol-Ipratropium Neb (Duoneb Neb) (01/14/17 01:45) MDM Medical Decision Making Medical Screen Exam Complete: Yes Emergency Medical Condition: Yes Differential Diagnosis URI, asthma exacerbation, bronchitis. Narrative Course Patient roomed in emergency department, chest x-ray negative, given DuoNeb. Vital signs within normal limits. Will be discharged on prednisone course of azithromycin with Ventolin inhaler. Paper scripts written as we're currently and down time. Diagnosis Primary Impression: Bronchitis Med/Other Pt SpecificInfo: Prescription(s) given Disposition: DISCHARGE HOME Condition: Stable Rudi Lundberg MD Jan 15, 2017 00:12
--- NOTE | 2017-01-17 09:54 | RADRPT ---
EXAM DATE/TIME: 01/14/2017 02:16 [facility] COMPARISON: CHEST SINGLE AP, November 10, 2016, 22:40. INDICATIONS : Shortness of breath. MEDICAL HISTORY : Asthma. SURGICAL HISTORY : None. ENCOUNTER: Initial ACUITY: 1 day PAIN SCORE: 0/10 LOCATION: chest FINDINGS: A single view of the chest demonstrates the lungs to be symmetrically aerated without evidence of mas s, infiltrate or effusion. The cardiomediastinal contours are unremarkable. Osseous structures are intact. CONCLUSION: No acute cardiopulmonary process. Jerry Cortes MD on January 14, 2017 at 2:46 Board Certified Radiologist. This report was verified electronically.
== END | disposition home or self-care (01) ==
LOC: NED 01:17
DX: J40 Bronchitis, not specified as acute or chronic (principal); Z87.891 Personal history of nicotine dependence
CPT/HCPCS: 71010; 94664; 99284

== ENCOUNTER 2017-02-20 00:20 | Emergency (ER) | payer MEDICAID ==
[~2017-02-20] VITALS: Ht 185.4 cm; Wt 115.0 kg
[~2017-02-20 00:20] MED LIST changes: -RESP: ALBUTEROL 2.5 MG/IPRATROPIUM 0.5 MG NEB (SCH) NEB; -ZOFR4TAB3 SL
[2017-02-20 00:21] VITALS: BP 137/76; PULSE 71; RESP 16; TEMP 98.9; O2SAT 96
[2017-02-20] MEDS ORDERED: SODIUM CHLOR 0.9% 1000 ML INJ 1,000 ML IV SCH (02:10)
--- NOTE | 2017-02-20 02:11 | PD ---
HPI Chief Complaint: GI Complaint Time Seen by Provider: 02:10 Travel History International Travel<30 days: No Contact w/Intl Traveler<30days: No Traveled to known affect area: No History of Present Illness HPI 21-year-old male with 4 hours of abdominal pain progressively worsening. Symptoms are associated with nausea vomiting and diarrhea. No hematemesis no coffee-ground emesis no melena or hematochezia. Patient does not recall any dietary indiscretion well water ingestion or foreign travel. Patient denies fever chills. PFSH Past Medical History Narrative Medical asthma Asthma: Yes Diabetes: Yes (TYPE 1) Patient Takes Glucophage: No Diminished Hearing: No Respiratory: Yes (ASTHMA) Immunizations Current: No ?: Not Past Surgical History Tonsillectomy: Yes (T AND A) Other Surgery: Yes (adenoids removed ) Social History Alcohol Use: No Tobacco Use: No Substance Use: No Allergies-Medications (Allergen,Severity, Reaction): Coded Allergies: shellfish derived (Unverified Allergy, Severe, Hives, 02/20/17) Reported Meds & Prescriptions Reported Meds & Active Scripts Active Zofran Odt (Ondansetron Odt) 4 Mg Tab 4 Mg SL Q6HR PRN Montelukast (Montelukast Sodium) 10 Mg Tab 10 Mg PO HS Proair Hfa 8.5 GM Inh (Albuterol Sulfate) 90 Mcg/Act Aer 2 Puff INH Q4-6H PRN 108 mcg/actuation Qvar Inh (Beclomethasone Dipropionate) 80 Mcg/Act Aero 2 Puff INH BID Nebulizer/Adult Mask (N/A) 1 Kit Kit 1 Kit .ROUTE DIRECTED Proair Hfa 8.5 GM Inh (Albuterol Sulfate) 90 Mcg/Act Aer 2 Puff INH Q4-6H PRN 108 mcg/actuation Albuterol Neb (Albuterol Sulfate) 2.5 Mg/3 Ml Neb 2.5 Mg NEB Q4HR NEB PRN Review of Systems Except as stated in HPI: all other systems reviewed are Neg General / Constitutional: No: Fever, Chills HENT: No: Congestion Cardiovascular: No: Chest Pain or Discomfort Respiratory: No: Shortness of Breath Gastrointestinal: Positive: Nausea, Diarrhea, Abdominal Pain (cramping) Genitourinary: No: Flank Pain Musculoskeletal: No: Myalgias, Arthralgias Skin: No Rash Neurologic: No: Weakness Psychiatric: No: Anxiety Hematologic/Lymphatic: No: Lymph Node Enlargement Physical Exam Narrative GENERAL: Well-developed well-nourished male in no acute distress no respiratory distress SKIN: Warm and dry. HEAD: Normocephalic. EYES: No scleral icterus. No injection or drainage. NECK: Supple, trachea midline. No JVD or lymphadenopathy. CARDIOVASCULAR: Regular rate and rhythm without murmurs, gallops, or rubs. RESPIRATORY: Breath sounds equal bilaterally. No accessory muscle use. GASTROINTESTINAL: Abdomen soft, non-tender, nondistended. MUSCULOSKELETAL: No cyanosis, or edema. BACK: Nontender without obvious deformity. No CVA tenderness. Data Data Last Documented VS Vital Signs Date Time Temp Pulse Resp B/P (MAP) Pulse Ox O2 Delivery O2 Flow Rate FiO2 02/20/17 02:13 99 Room Air 02/20/17 00:21 98.9 71 16 Orders Orders Complete Blood Count With Diff (02/20/17 02:10) Comprehensive Metabolic Panel (02/20/17 02:10) Lipase (02/20/17 02:10) Urinalysis - C+S If Indicated (02/20/17 02:10) Iv Access Insert/Monitor (02/20/17 02:10) Ecg Monitoring (02/20/17 02:10) Oximetry (02/20/17 02:10) Ondansetron Inj (Zofran Inj) (02/20/17 02:15) Sodium Chlor 0.9% 1000 Ml Inj (Ns 1000 M (02/20/17 02:10) Sodium Chloride 0.9% Flush (Ns Flush) (02/20/17 02:15) Ed Discharge Order (02/20/17 06:57) Labs Laboratory Tests Test 02/20/17 02:31 02/20/17 04:14 White Blood Count 10.0 TH/MM3 Red Blood Count 5.63 MIL/MM3 Hemoglobin 16.2 GM/DL Hematocrit 47.7 % Mean Corpuscular Volume 84.7 FL Mean Corpuscular Hemoglobin 28.9 PG Mean Corpuscular Hemoglobin Concent 34.1 % Red Cell Distribution Width 13.1 % Platelet Count 233 TH/MM3 Mean Platelet Volume 8.4 FL Neutrophils (%) (Auto) 71.0 % Lymphocytes (%) (Auto) 18.3 % Monocytes (%) (Auto) 4.8 % Eosinophils (%) (Auto) 5.7 % Basophils (%) (Auto) 0.2 % Neutrophils # (Auto) 7.1 TH/MM3 Lymphocytes # (Auto) 1.8 TH/MM3 Monocytes # (Auto) 0.5 TH/MM3 Eosinophils # (Auto) 0.6 TH/MM3 Basophils # (Auto) 0.0 TH/MM3 CBC Comment DIFF FINAL Differential Comment Blood Urea Nitrogen 16 MG/DL Creatinine 1.10 MG/DL Random Glucose 90 MG/DL Total Protein 7.5 GM/DL Albumin 3.9 GM/DL Calcium Level 8.3 MG/DL Alkaline Phosphatase 59 U/L Aspartate Amino Transf (AST/SGOT) 26 U/L Alanine Aminotransferase (ALT/SGPT) 27 U/L Total Bilirubin 1.1 MG/DL Sodium Level 139 MEQ/L Potassium Level 3.9 MEQ/L Chloride Level 105 MEQ/L Carbon Dioxide Level 27.7 MEQ/L Anion Gap 6 MEQ/L Estimat Glomerular Filtration Rate 103 ML/MIN Lipase 95 U/L Urine Color YELLOW Urine Turbidity HAZY Urine pH 6.5 Urine Specific [place] 1.029 Urine Protein NEG mg/dL Urine Glucose (UA) NEG mg/dL Urine Ketones NEG mg/dL Urine Occult Blood NEG Urine Nitrite NEG Urine Bilirubin NEG Urine Urobilinogen 2.0 MG/DL Urine Leukocyte Esterase NEG Urine RBC 1 /hpf Urine WBC 1 /hpf Microscopic Urinalysis Comment CULT NOT INDICATED MDM Medical Decision Making Medical Screen Exam Complete: Yes Emergency Medical Condition: Yes Medical Record Reviewed: Yes Interpretation(s) CBC & BMP Diagram 02/20/17 02:31 Total Protein 7.5, Albumin 3.9, Calcium Level 8.3 L, Alkaline Phosphatase 59, Aspartate Amino Transf (AST/SGOT) 26, Alanine Aminotransferase (ALT/SGPT) 27, Total Bilirubin 1.1 H Vital Signs Date Time Temp Pulse Resp B/P (MAP) Pulse Ox O2 Delivery O2 Flow Rate FiO2 02/20/17 02:13 99 Room Air 02/20/17 00:21 98.9 71 16 137/76 (96) 96 Room Air Differential Diagnosis Abdominal pain gastritis gastroenteritis pancreatitis biliary colic appendicitis Narrative Course IV access obtained specimens collected and sent for resulting Patient administered, saline bolus along with Zofran Patient sleeping Labs resulted and found to be in normal range Patient is stable for outpatient management recommended follow-up with a insole reinforcer next 12-24 hours advance as tolerated return to the emergency department for any concerns or change in condition 1 day work excuse Diagnosis Primary Impression: Gastroenteritis Referrals: Primary Care Physician call for appointment Patient Instructions: General Instructions Additional Instructions: Follow clear liquid diet for next 12-24 hours advance as tolerated to bland/ Christophe diet and then regular diet Increase fluid hydration Takes Zofran as prescribed as needed for nausea and her vomiting Monitor temperature every 4 hours with thermometer and take as needed acetaminophen/Tylenol every 4 hours for fever 100.4F or greater Follow-up with primary care provider Return to the emergency department for any concerns Med/Other Pt SpecificInfo: Prescription(s) given Scripts Ondansetron Odt (Zofran Odt) 4 Mg Tab 4 MG SL Q6HR Y for Nausea/Vomiting, #10 TAB 0 Refills Prov: Florinda Castro MD 02/20/17 Disposition: 01 DISCHARGE HOME Condition: Stable Florinda Castro MD Feb 20, 2017 02:11
[2017-02-20 02:13] VITALS: O2SAT 99
[2017-02-20] MEDS ORDERED: ONDANSETRON HCL 4 MG/2 ML VIAL IVP ONE (02:15)
[2017-02-20] MEDS ORDERED: SODIUM CHLORIDE 0.9% FLUSH 10 ML FLUSH IV FLUSH PRN (02:15)
[2017-02-20 02:48] LABS: AUTOMATED NEUTROPHIL # 7.1 TH/MM3 (1.8-7.7); BASOPHIL % 0.2 % (0.0-2.0); EOSINOPHIL # 0.6 TH/MM3 (0-0.4); EOSINOPHIL % 5.7 % (0.0-4.0); HEMATOCRIT 47.7 % (39.0-51.0); HEMO FLAGS DIFF FINAL; LYMPH % 18.3 % (9.0-44.0); LYMPHOCYTE # 1.8 TH/MM3 (1.0-4.8); MEAN CELL VOLUME 84.7 FL (80.0-100.0); MEAN CORPUSCULAR HEMOGLOBIN 28.9 PG (27.0-34.0); MEAN CORPUSCULAR HGB CONC 34.1 % (32.0-36.0); MONO % 4.8 % (0.0-8.0); PLATELET COUNT 233 TH/MM3 (150-450); RED BLOOD COUNT 5.63 MIL/MM3 (4.50-5.90); RED CELL DISTRIBUTION WIDTH 13.1 % (11.6-17.2)
[2017-02-20 03:11] LABS: ANION GAP 6 MEQ/L (5-15); AST (GOT) 26 U/L (15-39); BICARBONATE 27.7 MEQ/L (21.0-32.0); BLOOD UREA NITROGEN 16 MG/DL (7-18); CHLORIDE 105 MEQ/L (98-107); GLOMERULAR FILTRATION RATE 103 ML/MIN (>89); POTASSIUM 3.9 MEQ/L (3.5-5.1); SODIUM (NA) 139 MEQ/L (136-145)
[2017-02-20 03:14] LABS: ALKALINE PHOSPHATASE 59 U/L (45-117); ALT (GPT) 27 U/L (9-52); TOTAL BILIRUBIN ADULT 1.1 MG/DL (0.2-1.0)
[2017-02-20 04:35] LABS: BLOOD, URINE NEG (NEG); GLUCOSE,URINE NEG (NEG); KETONE, URINE NEG (NEG); NITRITE,URINE NEG (NEG); PH, URINE 6.5 (5.0-8.5); URINE COLOR YELLOW (YELLW/STRAW)
[2017-02-20 04:46] LABS: COMMENT (UR) CULT NOT INDICATED; CULTURE IF INDICATED CULT NOT INDICATED
[2017-02-20] MEDS ORDERED: ZOFR4TAB3 SL (06:58)
== END 2017-02-20 07:05 | disposition home or self-care (01) ==
LOC: NEPC 00:20
DX: K52.9 Noninfective gastroenteritis and colitis, unspecified (principal)
CPT/HCPCS: 80053; 81001; 83690; 85025; 96361; 96374; 99284; J2405; J7030

== ENCOUNTER 2017-04-24 23:58 | Emergency (ER) | payer MEDICAID ==
[~2017-04-24] VITALS: Ht 185.4 cm; Wt 125.0 kg
[~2017-04-24 23:58] MED LIST changes: +ZOFR4TAB3 SL
[2017-04-25 00:03] VITALS: BP 136/74; PULSE 84; RESP 18; TEMP 98.6; O2SAT 98
--- NOTE | 2017-04-25 00:11 | PD ---
HPI Chief Complaint: Back/ Neck Pain or Injury Time Seen by Provider: 00:00 Travel History International Travel<30 days: No Contact w/Intl Traveler<30days: No Traveled to known affect area: No History of Present Illness HPI 21-year-old male since for evaluation of pain in the upper gluteal cleft. It started this morning. Pain is throbbing, constant, worse when sitting. He has had a pilonidal cyst in the past and this feels similar. Denies fevers, chills , drainage. No other complaints. PFSH Past Medical History Asthma: Yes Diabetes: Yes (TYPE 1) Patient Takes Glucophage: No Diminished Hearing: No Medical other: Yes ("Pilonidal cyst") Respiratory: Yes (ASTHMA) Immunizations Current: Yes Past Surgical History Tonsillectomy: Yes (T AND A) Other Surgery: Yes (adenoids removed ) Social History Alcohol Use: Yes ("OCCASIONALLY") Tobacco Use: Yes ("OCCASIONALLY") Substance Use: Yes ("WEED") Allergies-Medications (Allergen,Severity, Reaction): Coded Allergies: shellfish derived (Unverified Allergy, Severe, Hives, 04/25/17) Reported Meds & Prescriptions Reported Meds & Active Scripts Active Augmentin (Amoxicillin-Clavulanate) 875-125 Mg Tab 1 Tab PO BID 7 Days Montelukast (Montelukast Sodium) 10 Mg Tab 10 Mg PO HS Qvar Inh (Beclomethasone Dipropionate) 80 Mcg/Act Aero 2 Puff INH BID Nebulizer/Adult Mask (N/A) 1 Kit Kit 1 Kit .ROUTE DIRECTED Proair Hfa 8.5 GM Inh (Albuterol Sulfate) 90 Mcg/Act Aer 2 Puff INH Q4-6H PRN 108 mcg/actuation Albuterol Neb (Albuterol Sulfate) 2.5 Mg/3 Ml Neb 2.5 Mg NEB Q4HR NEB PRN Review of Systems Gastrointestinal: No: Nausea, Vomiting, Diarrhea, Abdominal Pain Musculoskeletal: Positive: Pain Skin: Positive Other (pain, swelling) Physical Exam Narrative GENERAL: Well-nourished male in no acute distress SKIN: Warm and dry. 1 m pilonidal cyst, tender to palpation. HEAD: Atraumatic. Normocephalic. EYES: Pupils equal and round. No scleral icterus. No injection or drainage. ENT: No nasal bleeding or discharge. Mucous membranes pink and moist. NECK: Trachea midline. No JVD. CARDIOVASCULAR: Regular rate and rhythm. No murmur appreciated. RESPIRATORY: No accessory muscle use. Clear to auscultation. Breath sounds equal bilaterally. GASTROINTESTINAL: Abdomen soft, non-tender, nondistended. Hepatic and splenic margins not palpable. Data Data Last Documented VS Vital Signs Date Time Temp Pulse Resp B/P (MAP) Pulse Ox O2 Delivery O2 Flow Rate FiO2 04/25/17 00:03 98.6 84 18 136/74 (94) 98 Orders Orders Lidocaine 1% Inj (50 Ml) (Xylocaine 1% I (04/25/17 00:15) Amoxicil-Clavulanate (Augmentin) (04/25/17 00:45) Ibuprofen (Motrin) (04/25/17 00:45) Ed Discharge Order (04/25/17 00:43) [facility] Medical Decision Making Medical Screen Exam Complete: Yes Emergency Medical Condition: Yes Medical Record Reviewed: Yes Differential Diagnosis Pilonidal cyst, abscess, cellulitis Narrative Course 21-year-old male with one-day history of pain in the gluteal cleft region. History of pilonidal cysts in the past. Examination confirms pilonidal cyst formation today. Plan is for incision and drainage for which she verbally consents. Discharged with Augmentin. Recommend follow-up with colorectal surgeon for definitive treatment. Procedures Procedure Narrative INCISION AND DRAINAGE OF PILONIDAL CYST: The area was prepped and was sterilely draped. A subcutaneous wheal of 1% Xylocaine with a total number 8 mL was used to anesthetize the area. The area was properly anesthetized. A number 11 scalpel was used to make a 1 -cm incision across the area of the abscess. Diagnosis Primary Impression: Pilonidal cyst with abscess Additional Instructions: Warm bath 20 minutes at a time 2-3 times a day. Antibiotic as prescribed. Tylenol or Motrin for pain. Follow up with a colorectal surgeon on a routine basis and return for any emergent medical conditions. Med/Other Pt SpecificInfo: Prescription(s) given Scripts Amoxicillin-Clavulanate (Augmentin) 875-125 Mg Tab 1 TAB PO BID for Infection for 7 Days, #14 TAB 0 Refills Prov: Teena Gaffney MD 04/25/17 Disposition: 01 DISCHARGE HOME Condition: Stable Gerry Palacio Apr 25, 2017 00:11
[2017-04-25] MEDS ORDERED: LIDOCAINE HCL 1% 50 ML VIAL INFIL ONE (00:15)
[2017-04-25] MEDS ORDERED: AUGM875T3 PO (00:44)
[2017-04-25] MEDS ORDERED: AMOXICILLIN/CLAVULANATE K 875 MG TAB PO ONE (00:45)
[2017-04-25] MEDS ORDERED: IBUPROFEN 600 MG TAB PO ONE (00:45)
[2017-04-25] MEDS ORDERED: ALBUAER3 INH (01:20)
== END 2017-04-25 01:22 | disposition home or self-care (01) ==
LOC: NEPD 23:58
DX: L05.01 Pilonidal cyst with abscess (principal); J45.909 Unspecified asthma, uncomplicated; Z72.0 Tobacco use
CPT/HCPCS: 10080

== ENCOUNTER 2017-07-21 16:31 | Emergency (ER) | payer MEDICAID, OTHER ==
[~2017-07-21] VITALS: Ht 185.4 cm; Wt 130.0 kg
[~2017-07-21 16:31] MED LIST changes: +AUGM875T3 PO; -ZOFR4TAB3 SL
[2017-07-21 16:39] VITALS: BP 139/65; PULSE 93; RESP 16; TEMP 97.3; O2SAT 99
[2017-07-21] MEDS ORDERED: LIDOCAINE HCL 1% PF 30 ML VIAL INFIL ONE (17:30)
--- NOTE | 2017-07-21 17:58 | PD ---
HPI Chief Complaint: Laceration/Skin Injury Time Seen by Provider: 17:23 Travel History International Travel<30 days: No Contact w/Intl Traveler<30days: No Traveled to known affect area: No History of Present Illness HPI 21-year-old right-hand dominant male presents to ED for evaluation of laceration of ring finger of the left hand. 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 Patient denies numbness, tingling, weakness, limitations to range of motion of the extremity. He states that he had a tetanus shot 3 years ago after a bite. No treatment at home. PFSH Past Medical History Asthma: Yes Diabetes: Yes (TYPE 1) Diminished Hearing: No Respiratory: Yes (ASTHMA) Immunizations Current: Yes Past Surgical History Tonsillectomy: Yes (T AND A) Other Surgery: Yes (adenoids removed ) Social History Alcohol Use: Yes ("OCCASIONALLY") Tobacco Use: Yes ("OCCASIONALLY") Substance Use: Yes ("WEED") Allergies-Medications (Allergen,Severity, Reaction): Coded Allergies: shellfish derived (Unverified Allergy, Severe, Hives, 04/25/17) Reported Meds & Prescriptions Reported Meds & Active Scripts Active Proair Hfa 8.5 GM Inh (Albuterol Sulfate) 90 Mcg/Act Aer 2 Puff INH Q4-6H PRN 108 mcg/actuation Augmentin (Amoxicillin-Clavulanate) 875-125 Mg Tab 1 Tab PO BID 7 Days Montelukast (Montelukast Sodium) 10 Mg Tab 10 Mg PO HS Qvar Inh (Beclomethasone Dipropionate) 80 Mcg/Act Aero 2 Puff INH BID Nebulizer/Adult Mask (N/A) 1 Kit Kit 1 Kit .ROUTE DIRECTED Proair Hfa 8.5 GM Inh (Albuterol Sulfate) 90 Mcg/Act Aer 2 Puff INH Q4-6H PRN 108 mcg/actuation Albuterol Neb (Albuterol Sulfate) 2.5 Mg/3 Ml Neb 2.5 Mg NEB Q4HR NEB PRN Review of Systems Except as stated in HPI: all other systems reviewed are Neg Physical Exam Narrative GENERAL: Well-nourished, well-developed [place] male no acute distress. SKIN: Focused skin assessment warm/dry. HEAD: Normocephalic. EYES: No scleral icterus. No injection or drainage. NECK: Supple, trachea midline. No JVD or lymphadenopathy. CARDIOVASCULAR: Regular rate and rhythm without murmurs, gallops, or rubs. RESPIRATORY: Breath sounds equal bilaterally. No accessory muscle use. GASTROINTESTINAL: Abdomen soft, non-tender, nondistended. MUSCULOSKELETAL: No cyanosis, or edema. FOCUSED LEFT UPPER EXTREMITY EXAM: 2+ radial pulse. Hand is warm and well perfused. There is a 1.5 cm laceration on the radial aspect of the left distal ring finger. Cap refill less than 2 seconds. Sensation intact distally. Remaining hand exam is otherwise unremarkable. BACK: Nontender without obvious deformity. No CVA tenderness. Data Data Last Documented VS Vital Signs Date Time Temp Pulse Resp B/P (MAP) Pulse Ox O2 Delivery O2 Flow Rate FiO2 07/21/17 16:39 97.3 93 16 139/65 (89) 99 Orders Orders Lidocaine Pf 1% Inj (Xylocaine-Mpf 1% In (07/21/17 17:30) Ed Discharge Order (07/21/17 17:58) MDM Medical Decision Making Medical Screen Exam Complete: Yes Emergency Medical Condition: Yes Differential Diagnosis Laceration versus nail avulsion versus need for tetanus immunization versus other Narrative Course 21-year-old right-hand dominant male presents to ED for evaluation of laceration of ring finger of the left hand. 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 Patient denies numbness, tingling, weakness, limitations to range of motion of the extremity. He states that he had a tetanus shot 3 years ago after a bite. Vitals reviewed. On exam there is a 1.5 superficial laceration of the radial aspect of the distal tip of the ring finger of the left hand. Exam otherwise unremarkable. Laceration repair was performed. Placement procedure note for details. Patient is instructed to keep the wound clean, dry and covered, return in 7 days for suture removal. He indicated understanding of instructions. He is stable and discharged home. Procedures Procedure Narrative LACERATION LOCATION: Radial aspect distal tip left ring finger LENGTH: 1.5 cm NUMBER OF STITCHES/CONCEPCION: 3 REPAIR: The area of the laceration was prepped with Betadine and sterilely draped. A digital block was performed with 1% lidocaine. The wound was copiously irrigated and explored without evidence of foreign body, tendon injury or neurovascular injury. The wound was closed using 5-0 Prolene. This was a single layer repair. A sterile dressing was applied. The patient was advised to keep the dressing clean and dry. Patient tolerated the procedure well. Diagnosis Primary Impression: Laceration of finger of left hand Qualified Codes: S61.215A - Laceration without foreign body of left ring finger without damage to nail, initial encounter Referrals: Primary Care Physician Additional Instructions: Keep the wound clean, dry and covered. Monitor for signs of infection as discussed. Suture removal in 7 days. Return to the ED for any urgent or emergent medical condition. Disposition: 01 DISCHARGE HOME Condition: Stable Suzanne Morel Jul 21, 2017 17:58
== END 2017-07-21 18:25 | disposition home or self-care (01) ==
LOC: NEPK 16:31
DX: S61.215A Laceration without foreign body of left ring finger without damage to nail, initial encounter (principal); W26.0XXA Contact with knife, initial encounter; Y93.G1 Activity, food preparation and clean up; Y99.0 Civilian activity done for income or pay
CPT/HCPCS: 12001

== ENCOUNTER 2017-08-04 00:15 | Emergency (ER) | payer SELFPAY ==
[~2017-08-04] VITALS: Ht 190.5 cm; Wt 126.0 kg
[2017-08-04 01:02] VITALS: BP 159/82; PULSE 68; RESP 17; TEMP 98.4; O2SAT 98
[2017-08-04 01:44] LABS: AUTOMATED NEUTROPHIL # 2.7 TH/MM3 (1.8-7.7); BASOPHIL % 0.7 % (0.0-2.0); EOSINOPHIL # 0.4 TH/MM3 (0-0.4); EOSINOPHIL % 5.4 % (0.0-4.0); HEMATOCRIT 46.8 % (39.0-51.0); LYMPHOCYTE # 3.7 TH/MM3 (1.0-4.8); MEAN CELL VOLUME 84.4 FL (80.0-100.0); MEAN CORPUSCULAR HEMOGLOBIN 28.9 PG (27.0-34.0); MEAN CORPUSCULAR HGB CONC 34.2 % (32.0-36.0); MEAN PLATELET VOLUME 8.8 FL (7.0-11.0); MONO % 7.4 % (0.0-8.0); MONOCYTE # 0.5 TH/MM3 (0-0.9); NEUT % 36.5 % (16.0-70.0); PLATELET COUNT 246 TH/MM3 (150-450); RED BLOOD COUNT 5.55 MIL/MM3 (4.50-5.90); RED CELL DISTRIBUTION WIDTH 13.3 % (11.6-17.2); WHITE BLOOD COUNT 7.3 TH/MM3 (4.0-11.0)
[2017-08-04 01:53] LABS: BILIRUBIN, URINE NEG (NEG); BLOOD, URINE NEG (NEG); GLUCOSE,URINE NEG (NEG); KETONE, URINE NEG (NEG); MUCUS URINE FEW /lpf (OCC); NITRITE,URINE NEG (NEG); PH, URINE 5.5 (5.0-8.5); URINE COLOR YELLOW (YELLW/STRAW); URINE LEUKOCYTE ESTERASE NEG (NEG)
[2017-08-04 02:10] LABS: ALBUMIN 3.9 GM/DL (3.4-5.0); AST (GOT) 22 U/L (15-39); BICARBONATE 29.6 MEQ/L (21.0-32.0); BLOOD UREA NITROGEN 12 MG/DL (7-18); CALCIUM 8.9 MG/DL (8.5-10.1); CHLORIDE 104 MEQ/L (98-107); CREATININE 1.27 MG/DL (0.60-1.30); GLOMERULAR FILTRATION RATE 88 ML/MIN (>89); GLUCOSE,RANDOM 95 MG/DL (74-106); SODIUM (NA) 140 MEQ/L (136-145)
[2017-08-04 02:13] LABS: ALKALINE PHOSPHATASE 58 U/L (45-117); ALT (GPT) 22 U/L (9-52); TOTAL BILIRUBIN ADULT 0.9 MG/DL (0.2-1.0); TOTAL PROTEIN 7.7 GM/DL (6.4-8.2)
[2017-08-04] MEDS ORDERED: ONDANSETRON HCL 4 MG/2 ML VIAL IV PUSH ONE (03:30)
[2017-08-04] MEDS ORDERED: SODIUM CHLOR 0.9% 1000 ML INJ 1,000 ML IV ONE (03:30)
--- NOTE | 2017-08-04 03:39 | PD ---
HPI Chief Complaint: Abdominal Pain Time Seen by Provider: 02:28 Travel History International Travel<30 days: No Contact w/Intl Traveler<30days: No Traveled to known affect area: No History of Present Illness HPI Patient is a 21-year-old female presents emergency department for epigastric abdominal pain for the past day. Patient states had some mild nausea one episode of nonbilious nonbloody emesis. Patient states he also has been having a mild headache. States symptoms have been to once in the past and thought this is a GI bug. He feels fairly run down but no fevers no diarrhea no constipation. He states the pain is fairly mild, epigastric, no radiation, duration PFSH Past Medical History Asthma: Yes Diabetes: Yes (TYPE 1) Patient Takes Glucophage: No Diminished Hearing: No Respiratory: Yes (asthma) Immunizations Current: Yes Tetanus Vaccination: Unknown Influenza Vaccination: Yes Past Surgical History Tonsillectomy: Yes (T AND A) Other Surgery: Yes (adenoids removed ) Social History Alcohol Use: Yes ("OCCASIONALLY") Tobacco Use: Yes ("OCCASIONALLY") Substance Use: Yes ("WEED") Allergies-Medications (Allergen,Severity, Reaction): Coded Allergies: shellfish derived (Unverified Allergy, Severe, Hives, 08/04/17) Reported Meds & Prescriptions Reported Meds & Active Scripts Active Zofran (Ondansetron HCl) 4 Mg Tab 4 Mg PO Q6HR PRN Proair Hfa 8.5 GM Inh (Albuterol Sulfate) 90 Mcg/Act Aer 2 Puff INH Q4-6H PRN 108 mcg/actuation Augmentin (Amoxicillin-Clavulanate) 875-125 Mg Tab 1 Tab PO BID 7 Days Montelukast (Montelukast Sodium) 10 Mg Tab 10 Mg PO HS Qvar Inh (Beclomethasone Dipropionate) 80 Mcg/Act Aero 2 Puff INH BID Nebulizer/Adult Mask (N/A) 1 Kit Kit 1 Kit .ROUTE DIRECTED Proair Hfa 8.5 GM Inh (Albuterol Sulfate) 90 Mcg/Act Aer 2 Puff INH Q4-6H PRN 108 mcg/actuation Albuterol Neb (Albuterol Sulfate) 2.5 Mg/3 Ml Neb 2.5 Mg NEB Q4HR NEB PRN Review of Systems Except as stated in HPI: all other systems reviewed are Neg Physical Exam Narrative GENERAL: Well-developed well-nourished no obvious distress per SKIN: Focused skin assessment warm/dry. HEAD: Atraumatic. Normocephalic. EYES: Pupils equal and round. No scleral icterus. No injection or drainage. ENT: No nasal bleeding or discharge. Mucous membranes pink and moist. NECK: Trachea midline. No JVD. CARDIOVASCULAR: Regular rate and rhythm. No murmur appreciated. RESPIRATORY: No accessory muscle use. Clear to auscultation. Breath sounds equal bilaterally. GASTROINTESTINAL: Abdomen soft, non-tender, nondistended. Hepatic and splenic margins not palpable. No rebound no percussive tenderness, no CVA tenderness, Rai sign negative, psoas sign negative, obturator sign negative, Rovsing sign negative . MUSCULOSKELETAL: No obvious deformities. No clubbing. No cyanosis. No edema. NEUROLOGICAL: Awake and alert. No obvious cranial nerve deficits. Motor grossly within normal limits. Normal speech. PSYCHIATRIC: Appropriate mood and affect; insight and judgment normal. Data Data Last Documented VS Vital Signs Date Time Temp Pulse Resp B/P (MAP) Pulse Ox O2 Delivery O2 Flow Rate FiO2 08/04/17 03:55 99 Room Air 08/04/17 03:55 16 08/04/17 01:02 98.4 68 159/82 (107) Orders Orders Complete Blood Count With Diff (08/04/17 01:04) Comprehensive Metabolic Panel (08/04/17 01:04) Urinalysis - C+S If Indicated (08/04/17 01:04) Iv Access Insert/Monitor (08/04/17 01:04) Oxygen Administration (08/04/17 01:04) Oximetry (08/04/17 01:04) Lipase (08/04/17 01:04) Sodium Chlor 0.9% 1000 Ml Inj (Ns 1000 M (08/04/17 03:30) Ondansetron Inj (Zofran Inj) (08/04/17 03:30) Ed Discharge Order (08/04/17 04:29) Labs Laboratory Tests Test 08/04/17 01:27 08/04/17 01:28 White Blood Count 7.3 TH/MM3 Red Blood Count 5.55 MIL/MM3 Hemoglobin 16.0 GM/DL Hematocrit 46.8 % Mean Corpuscular Volume 84.4 FL Mean Corpuscular Hemoglobin 28.9 PG Mean Corpuscular Hemoglobin Concent 34.2 % Red Cell Distribution Width 13.3 % Platelet Count 246 TH/MM3 Mean Platelet Volume 8.8 FL Neutrophils (%) (Auto) 36.5 % Lymphocytes (%) (Auto) 50.0 % Monocytes (%) (Auto) 7.4 % Eosinophils (%) (Auto) 5.4 % Basophils (%) (Auto) 0.7 % Neutrophils # (Auto) 2.7 TH/MM3 Lymphocytes # (Auto) 3.7 TH/MM3 Monocytes # (Auto) 0.5 TH/MM3 Eosinophils # (Auto) 0.4 TH/MM3 Basophils # (Auto) 0.0 TH/MM3 CBC Comment DIFF FINAL Differential Comment Blood Urea Nitrogen 12 MG/DL Creatinine 1.27 MG/DL Random Glucose 95 MG/DL Total Protein 7.7 GM/DL Albumin 3.9 GM/DL Calcium Level 8.9 MG/DL Alkaline Phosphatase 58 U/L Aspartate Amino Transf (AST/SGOT) 22 U/L Alanine Aminotransferase (ALT/SGPT) 22 U/L Total Bilirubin 0.9 MG/DL Sodium Level 140 MEQ/L Potassium Level 3.4 MEQ/L Chloride Level 104 MEQ/L Carbon Dioxide Level 29.6 MEQ/L Anion Gap 6 MEQ/L Estimat Glomerular Filtration Rate 88 ML/MIN Lipase 96 U/L Urine Color YELLOW Urine Turbidity CLEAR Urine pH 5.5 Urine Specific [place] 1.033 Urine Protein TRACE mg/dL Urine Glucose (UA) NEG mg/dL Urine Ketones NEG mg/dL Urine Occult Blood NEG Urine Nitrite NEG Urine Bilirubin NEG Urine Urobilinogen 2.0 MG/DL Urine Leukocyte Esterase NEG Urine RBC 2 /hpf Urine WBC 2 /hpf Urine Mucus FEW /lpf Microscopic Urinalysis Comment CULT NOT INDICATED MDM Medical Decision Making Medical Screen Exam Complete: Yes Emergency Medical Condition: Yes Differential Diagnosis Pancreatitis, gastritis, cholecystitis, gastroenteritis, acute abdomen unlikely. Narrative Course Patient room to the emergency department, his abdomen is benign and basic labs reassuring. Discussed symptomatic management, he states it has been to be very difficult for him to get his medication secondary to finances, that reason we have agreed on giving him a liter of normal saline and some IV Zofran. He is feeling better. He is stable for discharge. Discussed follow-up with primary care physician or the [facility] and return to ED criteria. Diagnosis Primary Impression: Epigastric abdominal pain Med/Other Pt SpecificInfo: Prescription(s) given Scripts Ondansetron (Zofran) 4 Mg Tab 4 MG PO Q6HR Y for NAUSEA OR VOMITING, #20 TAB 0 Refills Prov: Rudi Lundberg MD 08/04/17 Disposition: 01 DISCHARGE HOME Condition: Stable Rudi Lundberg MD Aug 04, 2017 03:39
[2017-08-04 03:55] VITALS: RESP 16
[2017-08-04] MEDS ORDERED: ZOFR4TAB PO ×2 (04:26→04:27)
== END 2017-08-04 05:16 | disposition home or self-care (01) ==
LOC: NEPE 00:15
DX: R10.13 Epigastric pain (principal); R11.2 Nausea with vomiting, unspecified; R51 Headache; E10.9 Type 1 diabetes mellitus without complications; J45.909 Unspecified asthma, uncomplicated; Z72.0 Tobacco use; F12.90 Cannabis use, unspecified, uncomplicated
CPT/HCPCS: 80053; 81001; 83690; 85025; 96361; 96374; 99284; J2405; J7030